=== PATIENT | male | born 1960 | race Caucasian/White ===

== ENCOUNTER 2022-02-28 13:39 | Inpatient (IN) | payer OTHER ==
[~2022-02-28] VITALS: Ht 180.3 cm; Wt 78.5 kg
[2022-02-28] MEDS ORDERED: INSU200I SQ (13:53)
[2022-02-28] MEDS ORDERED: METF-494 PO (13:53)
[2022-02-28] MEDS ORDERED: [UNRECOGNIZED DRUG - REMARK] (13:53)
[2022-02-28 14:25] LABS: HEMATOCRIT 39.4 % (36.7-47.1); MEAN CORPUSCULAR HEMOGLOBIN 28.2 uug (23.8-33.4); MEAN CORPUSCULAR VOLUME 84.8 fL (73.0-96.2); PLATELET COUNT (AUTO) 218 K/uL (152-348)
[2022-02-28] MEDS ORDERED: IV NORMAL SALINE 500 ML BAG IV ONE ×2 (14:30)
[2022-02-28] MEDS ORDERED: IBUPROFEN 600 MG TABLET PO ONE (14:30)
[2022-02-28] MEDS ORDERED: CEFTRIAXONE 1 G in IV DEXTROSE 5% 50 ML IV ONE (14:30)
[2022-02-28] MEDS ORDERED: VANCOMYCIN IV 1,000 MG in IV DEXTROSE 5% 250 ML IV ONE (14:30)
[2022-02-28] MEDS ORDERED: IV NORMAL SALINE 1000 ML BAG IV ONE (14:30)
[2022-02-28] MEDS ORDERED: MORPHINE SULFATE 4 MG/1 ML DISP.SYRIN IV ONE (14:30)
[2022-02-28 15:23] LABS: ALANINE AMINOTRANSFERASE 24 U/L (16-63); ALKALINE PHOSPHATASE 129 U/L (50-136); ASPARTATE AMINOTRANSFERASE 10 U/L (15-37); BILIRUBIN,DIRECT 0.2 mg/dL (0.0-0.2); BILIRUBIN,TOTAL 0.2 mg/dL (0.2-1.0); CARBON DIOXIDE 28 mmol/L (21-32); CHLORIDE 101 mmol/L (98-107); CREATININE 1.3 mg/dL (0.6-1.3); POTASSIUM 3.6 mmol/L (3.5-5.1); TOTAL PROTEIN, SERUM 7.6 g/dL (6.4-8.2); UREA NITROGEN, BLOOD 19 mg/dL (7-18)
[2022-02-28 15:25] LABS: GLUCOSE 355 mg/dL (74-106)
[2022-02-28] MEDS ORDERED: VANCOMYCIN IV 200 ML ONE (15:29)
[2022-02-28] MEDS ORDERED: CEFTRIAXONE /D5W 50ML IVPB **ER PYXIS IV ONE (15:29)
[2022-02-28] MEDS ORDERED: MORPHINE SULFATE 4 MG/1 ML DISP.SYRIN ONE (15:30)
--- NOTE | 2022-02-28 15:51 | NUR ---
1414 Assisted pt to bed. Pt's left leg is red and swollen. Pitting edema (+). Per patient he passed out 3 days ago and hurt his left leg. He was still able to walk so he didn't go to ER. His temp at that time was 104F. Today, pt's oral temp is 99.8F.
[2022-02-28] MEDS ORDERED: MAGNESIUM HYDROXIDE 30 ML LIQUID UDC PO PRN (16:00)
[2022-02-28] MEDS ORDERED: HYDROCODONE/APAP 10-325 MG TABLET PO PRN (16:00)
[2022-02-28] MEDS ORDERED: DEXTROSE 50% 50 ML DISP.SYRIN IV PRN (16:00)
[2022-02-28] MEDS ORDERED: ACETAMINOPHEN 325 MG TABLET PO PRN (16:00)
[2022-02-28] MEDS ORDERED: ONDANSETRON 4 MG/2 ML VIAL IV PRN (16:00)
[2022-02-28] MEDS ORDERED: REMEDY ESSENTIAL ZINC PASTE 113 GM TP PRN (16:00)
[2022-02-28] MEDS ORDERED: INSULIN REGULAR, HUMAN 300 UNITS/3 ML VIAL SQ PRN (16:00)
[2022-02-28] MEDS: BLOOD SUGAR DIAGNOSTIC 1 EACH STRIP VI SCH ×2 (18:45→21:30)
[2022-02-28] MEDS ORDERED: INSULIN REGULAR, HUMAN 300 UNIT/3 ML VIAL ONE (18:49)
[2022-02-28] MEDS: INSULIN REGULAR, HUMAN 300 UNIT/3 ML VIAL SQ PRN (18:49)
[2022-02-28 18:59] LABS: *BILIRUBIN,URIN NEGATIVE (NEGATIVE); *BLOOD, URINE NEGATIVE (NEGATIVE); *CLARITY,URINE CLEAR (CLEAR); *COLOR,URINE YELLOW (YELLOW); *KETONES,URINE TRACE (NEGATIVE); LEUKOCYTE ESTERASE ,URINE NEGATIVE (NEGATIVE); NITRITE, URINE NEGATIVE (NEGATIVE); UGLUCOSE 2+ (NEGATIVE)
--- NOTE | 2022-02-28 19:32 | NUR ---
Scarlett reddy in ED - 02/28/22 at 1936 by JAIDEN Pt remained asleep but easily arousable and speaking in full sentences. Hemodinamically stable. Report given to
--- NOTE | 2022-02-28 19:36 | NUR ---
Pt remained asleep but easily arousable and speaking in full sentences. Hemodinamically stable. Report given to Rolan Hassan.
--- NOTE | 2022-02-28 19:45 | NUR ---
Called for bed. Humera LARA will call back
--- NOTE | 2022-02-28 21:29 | NUR ---
Called 3rd floor to give report. Spoke with Shae. Suzanne LARA will call back
--- NOTE | 2022-02-28 21:42 | NUR ---
report given to Suzanne LARA. Patient will be admitted to Med/Surg room 314
--- NOTE | 2022-02-28 22:11 | NUR ---
Pt. admitted to med/surg room 314 , under care of Dr. Hallie Zepeda Belongs List completed Suzanne RN aware of patient's arrival
[2022-02-28] MEDS: IV NS 1000 ML 1,000 ML IV PRN (22:16)
[2022-02-28 22:31] VITALS: BP 155/89
[2022-03-01] MEDS: VANCOMYCIN IV 1,250 MG in IV DEXTROSE 5% 250 ML IV SCH ×2 (02:52→14:18)
[2022-03-01 04:00] VITALS: BP 162/86
--- NOTE | 2022-03-01 06:03 | NUR ---
Admitted to [facility] for cellulitis. Pt resting in bed, no distress noted. Able to make needs known. Able to ambulate. IV site intact. Tolerated all medications ordered. Call light within reach. Will endorse to day shift.
[2022-03-01] MEDS: BLOOD SUGAR DIAGNOSTIC 1 EACH STRIP VI SCH ×3 (06:30→16:50)
[2022-03-01] MEDS: INSULIN REGULAR, HUMAN 300 UNIT/3 ML VIAL SQ PRN ×3 (07:58→15:55)
[2022-03-01 12:00] VITALS: BP 154/92
[2022-03-01 13:24] LABS: HEMATOCRIT 35.8 % (36.7-47.1); MEAN CORPUSCULAR HEMOGLOBIN 28.3 uug (23.8-33.4); MEAN CORPUSCULAR VOLUME 84.6 fL (73.0-96.2); PLATELET COUNT (AUTO) 220 K/uL (152-348)
[2022-03-01] MEDS: IV NS 1000 ML 1,000 ML IV PRN (13:35)
[2022-03-01] MEDS ORDERED: CEFTRIAXONE 1 G in IV DEXTROSE 5% 50 ML IV SCH (14:00)
[2022-03-01 14:07] LABS: BILIRUBIN,TOTAL 0.1 mg/dL (0.2-1.0); CREATININE 0.8 mg/dL (0.6-1.3); MAGNESIUM 1.6 mg/dL (1.8-2.4); PHOSPHOROUS 2.6 mg/dL (2.5-4.9); POTASSIUM 3.7 mmol/L (3.5-5.1); TOTAL PROTEIN, SERUM 7.1 g/dL (6.4-8.2)
[2022-03-01 16:00] VITALS: BP 145/71
--- NOTE | 2022-03-01 16:00 | NUR ---
REQUESTING TO SIGN PAPERS TO LEAVE AMA. Shmuel FRIEDMAN [employer] W[employer]ER NOTIFIED.
--- NOTE | 2022-03-01 16:15 | NUR ---
SALINE LOCK LEFT ANTICUBITAL DC'D BY PATIENT. PATIENT ALSO PULLED OUT IV IN LEFT FOREARM. MEDS. FROM PHARMACY RETURNED TO PATIENT.
--- NOTE | 2022-03-01 16:20 | NUR ---
GETTING DRESSED TO LEAVE AFTER SIGNING AMA PAPERS.
--- NOTE | 2022-03-01 16:45 | NUR ---
PATIENT LEFT AMBULATORY. NO ACUTE DISTRESS NOTED.
== END 2022-03-01 16:45 | disposition left against medical advice (07) | DRG 872 ==
LOC: ER 13:39 → TRANSITION 18:01 → MEDSURG3 21:50
PROVIDERS: ADMIT Nurse Practitioner Acute Care; ATTEND Nurse Practitioner Acute Care
DX: A41.9 Sepsis, unspecified organism (principal); L03.116 Cellulitis of left lower limb; E44.0 Moderate protein-calorie malnutrition; F17.210 Nicotine dependence, cigarettes, uncomplicated; E11.65 Type 2 diabetes mellitus with hyperglycemia; R79.89 Other specified abnormal findings of blood chemistry; F12.90 Cannabis use, unspecified, uncomplicated; R00.0 Tachycardia, unspecified; Z90.5 Acquired absence of kidney; I10 Essential (primary) hypertension; Z79.84 Long term (current) use of oral hypoglycemic drugs; Z79.4 Long term (current) use of insulin; Z91.041 Radiographic dye allergy status; Z88.6 Allergy status to analgesic agent; Z85.528 Personal history of other malignant neoplasm of kidney
CPT/HCPCS: 36415; 71045; 83605; 83735; 84100; 84484; 85025; 85730; 87040; 87086; 93005; A4663; G0378; J0696; J1815; J2270; J3370; J7040; J7050

== ENCOUNTER 2022-09-10 03:13 | Emergency (ER) | payer OTHER ==
[~2022-09-10] VITALS: Ht 180.3 cm; Wt 81.6 kg
[~2022-09-10 03:13] MED LIST: INSU200I SQ; METF-494 PO; [UNRECOGNIZED DRUG - REMARK]
--- NOTE | 2022-09-10 03:36 | NUR ---
Dr Colvin at bedside MSE in progress
[2022-09-10] MEDS ORDERED: CLINDAMYCIN 900MG/D5W 100ML IVPB **ER PYXIS ONLY IJ ONE (03:44)
[2022-09-10] MEDS ORDERED: ONDANSETRON 4 MG/2 ML VIAL ONE (03:44)
[2022-09-10] MEDS ORDERED: MORPHINE SULFATE 2 MG/1 ML DISP.SYRIN ONE (03:44)
[2022-09-10] MEDS ORDERED: ONDANSETRON 4 MG/2 ML VIAL IV ONE (03:45)
[2022-09-10] MEDS ORDERED: MORPHINE SULFATE 4 MG/1 ML DISP.SYRIN IV ONE (03:45)
[2022-09-10] MEDS ORDERED: CLINDAMYCIN PHOSPHATE IV 900 MG in IV DEXTROSE 5% 100 ML IV ONE (03:45)
[2022-09-10 04:00] LABS: HEMATOCRIT 38.3 % (36.7-47.1); MEAN CORPUSCULAR HEMOGLOBIN 27.9 uug (23.8-33.4); MEAN CORPUSCULAR VOLUME 84.2 fL (73.0-96.2); PLATELET COUNT (AUTO) 113 K/uL (152-348)
[2022-09-10 04:22] LABS: BILIRUBIN,TOTAL 0.3 mg/dL (0.2-1.0); POTASSIUM 4.3 mmol/L (3.5-5.1); TOTAL PROTEIN, SERUM 7.4 g/dL (6.4-8.2)
--- NOTE | 2022-09-10 04:28 | NUR ---
US tech at bedside
[2022-09-10] MEDS ORDERED: POTASSIUM CHLORIDE 20 MEQ TAB.PRT.SR ONE (04:44)
[2022-09-10] MEDS ORDERED: INSULIN REGULAR, HUMAN 300 UNIT/3 ML VIAL SQ ONE (04:45)
[2022-09-10] MEDS ORDERED: INSULIN REGULAR, HUMAN 300 UNIT/3 ML VIAL ONE (04:45)
[2022-09-10] MEDS ORDERED: POTASSIUM CHLORIDE 20 MEQ TAB.PRT.SR PO ONE (04:45)
[2022-09-10] MEDS ORDERED: ONDA4TAB5 PO (05:01)
[2022-09-10] MEDS ORDERED: CLIN300C12 PO (05:01)
[2022-09-10] MEDS ORDERED: HYDR-3980 PO (05:01)
--- NOTE | 2022-09-10 05:31 | NUR ---
Patient discharged to home in stable condition. Written and verbal after care instructions given. Patient verbalizes understanding of instructions. Stressed follow up or return to ER for worsening s/s. Patient is a/ox4, NAD noted. patient is ambulatory with steady gait.
[2022-09-10 05:32] VITALS: BP 142/76
== END 2022-09-10 05:36 | disposition home or self-care (01) ==
LOC: ER 03:15
DX: L03.115 Cellulitis of right lower limb (principal); M79.604 Pain in right leg; E11.65 Type 2 diabetes mellitus with hyperglycemia; Z79.4 Long term (current) use of insulin; Z79.84 Long term (current) use of oral hypoglycemic drugs; Z88.6 Allergy status to analgesic agent; Z91.041 Radiographic dye allergy status; Z85.528 Personal history of other malignant neoplasm of kidney; R03.0 Elevated blood-pressure reading, without diagnosis of hypertension
CPT/HCPCS: 99285; 93970; 96365; 96375; 80053; 85025; 87040 ×2; 36415; 96372; J3490 ×2; J2405; J2270; J1815; A4663

== ENCOUNTER 2024-05-04 14:40 | Emergency (ER) | payer OTHER, MEDICAID ==
[~2024-05-04] VITALS: Ht 180.3 cm; Wt 81.6 kg
[~2024-05-04 14:40] MED LIST changes: +CLIN300C12 PO; +HYDR-3980 PO; +ONDA4TAB5 PO
[2024-05-04 16:00] LABS: CALCIUM 9.3 mg/dL (8.5-10.1); CARBON DIOXIDE 29 mmol/L (21-32); CHLORIDE 99 mmol/L (98-107); CREATININE 0.9 mg/dL (0.6-1.3); GLUCOSE 260 mg/dL (74-106); POTASSIUM 4.1 mmol/L (3.5-5.1); SODIUM SERUM 135 mmol/L (136-145); UREA NITROGEN, BLOOD 15 mg/dL (7-18)
[2024-05-04] MEDS: IV NORMAL SALINE 1000 ML BAG IV ONE (16:01)
[2024-05-04] MEDS ORDERED: ONDANSETRON 4 MG/2 ML VIAL ONE (16:03)
[2024-05-04] MEDS ORDERED: MORPHINE SULFATE 4 MG/1 ML DISP.SYRIN ONE (16:03)
[2024-05-04] MEDS ORDERED: VANCOMYCIN IV 200 ML ONE (16:03)
[2024-05-04] MEDS ORDERED: PIPERACILLIN/TAZOBACTAM/D5W 50 ML IV ONE (16:03)
[2024-05-04 16:07] LABS: BASOPHILS # (AUTO) 0.1 K/UL (0.0-0.2); BASOPHILS % (AUTO) 0.8 % (0.0-2.0); EOSINOPHILS # (AUTO) 0.3 K/uL (0.0-0.7); EOSINOPHILS % (AUTO) 2.4 % (0.0-7.0); HEMOGLOBIN 13.1 g/dL (12.5-16.3); LYMPHOCYTES # (AUTO) 0.9 K/uL (0.8-4.8); LYMPHOCYTES % (AUTO) 7.4 % (20.5-51.5); MEAN CORPUSCULAR HEMOGLOBIN 27.6 uug (23.8-33.4); MEAN CORPUSCULAR HGB CONC 32 g/dL (32.5-36.3); MEAN CORPUSCULAR VOLUME 86.4 fL (73.0-96.2); MONOCYTES # (AUTO) 0.7 K/uL (0.1-1.30); MONOCYTES % (AUTO) 5.6 % (0.0-11.0); NEUTROPHILS # (AUTO) 10.2 K/uL (1.8-8.9); NEUTROPHILS % (AUTO) 83.8 % (38.5-71.5); PLATELET COUNT (AUTO) 169 K/uL (152-348); RED BLOOD CELL COUNT(AUTO) 4.75 MIL/uL (4.06-5.63); RED CELL DISTRIBUTION WIDTH 13.8 % (12.1-16.2); WHITE BLOOD COUNT (AUTO) 12.2 K/uL (3.6-10.2)
[2024-05-04] MEDS: ONDANSETRON 4 MG/2 ML VIAL IV ONE (16:08)
[2024-05-04] MEDS: MORPHINE SULFATE 2 MG/1 ML DISP.SYRIN IV ONE (16:09)
[2024-05-04] MEDS: PIPERACILLIN SODIUM/TAZOBACTAM 3.375 G in IV DEXTROSE 5% 50 ML IV ONE (16:11)
[2024-05-04 16:13] LABS: ALANINE AMINOTRANSFERASE 19 U/L (16-63); ALBUMIN 2.8 g/dL (3.4-5.0); ALKALINE PHOSPHATASE 133 U/L (50-136); ASPARTATE AMINOTRANSFERASE 22 U/L (15-37); BILIRUBIN,DIRECT 0.1 mg/dL (0.0-0.2); BILIRUBIN,TOTAL 0.2 mg/dL (0.2-1.0); NT-PRO BNP 326 pg/mL (0-125); TOTAL PROTEIN, SERUM 7.4 g/dL (6.4-8.2)
[2024-05-04] MEDS: VANCOMYCIN IV 1,000 MG in IV DEXTROSE 5% 250 ML IV ONE (16:39)
[2024-05-04] MEDS ORDERED: INSU100I40 SQ (17:00)
[2024-05-04] MEDS ORDERED: METF-442 PO (17:00)
[2024-05-04] MEDS ORDERED: hydrALAZINE HCL 20 MG/1 ML VIAL ONE (17:59)
[2024-05-04] MEDS ORDERED: CLONIDINE HCL 0.1 MG TABLET ONE (17:59)
[2024-05-04] MEDS: CLONIDINE HCL 0.1 MG TABLET PO ONE (18:02)
[2024-05-04] MEDS: hydrALAZINE HCL 20 MG/1 ML VIAL IV ONE (18:02)
[2024-05-04] MEDS ORDERED: TETRACAINE HCL 0.5% OPHT DROP 2 ML BOTTLE ONE (18:08)
[2024-05-04] MEDS ORDERED: FLUORESCEIN SODIUM 1 MG STRIP ONE (18:08)
[2024-05-04] MEDS ORDERED: CLIN300C12 PO (18:18)
[2024-05-04 18:31] VITALS: BP 179/98; TEMP 98; O2SAT 100
== END 2024-05-04 18:32 | disposition home or self-care (01) ==
LOC: ER 14:40
DX: L03.116 Cellulitis of left lower limb (principal); L03.115 Cellulitis of right lower limb; R07.89 Other chest pain; E11.9 Type 2 diabetes mellitus without complications; F12.90 Cannabis use, unspecified, uncomplicated; Z79.4 Long term (current) use of insulin; Z79.84 Long term (current) use of oral hypoglycemic drugs; R94.31 Abnormal electrocardiogram [ECG] [EKG]; Z85.528 Personal history of other malignant neoplasm of kidney; Z90.5 Acquired absence of kidney; Z20.822 Contact with and (suspected) exposure to COVID-19; Z91.041 Radiographic dye allergy status
CPT/HCPCS: 99285; 93970; 96365; 96375; 71045; 96367; 96366; 87426; 80076; 80048; 83880; 85025; 85379; 85730; 87040 ×2; 84484; 36415; 93005; 83605; J0360; J2405; J2543; J3370; J2270; J7040 ×3; A4606; A4663